=== PATIENT | female | born 1975 | race Hispanic/Latino ===

== ENCOUNTER 2021-03-15 12:01 | Emergency (ER) | payer BC ==
[~2021-03-15] VITALS: Ht 149.9 cm; Wt 67.1 kg
[2021-03-15 15:42] VITALS: BP 126/84
== END 2021-03-15 14:20 | disposition home or self-care (01) ==
LOC: ER 12:57
DX: R05 Cough (principal); R06.02 Shortness of breath; J40 Bronchitis, not specified as acute or chronic; I10 Essential (primary) hypertension
CPT/HCPCS: 71045; 99283; U0002